=== PATIENT | female | born 1955 | race Caucasian/White ===

== ENCOUNTER → 2022-03-16 14:07 | Outpatient (CLI) | payer BC, SELFPAY ==
--- NOTE | ~2022-03-16 | MM_ITS ---
EXAMINATION: MM screening [facility] BI w santino HISTORY: Screening mammogram TECHNIQUE: Craniocaudal and mediolateral oblique 3-D tomosynthesis images were obtained and synthetic 2-D images were generated. CAD analysis was submitted and interpreted. COMPARISON: 01/14/2015, 08/26/2011 BREAST PARENCHYMAL COMPOSITION: There are scattered areas of fibroglandular density. FINDINGS: There is no suspicious mass, calcification, or architectural distortion to suggest malignan cy in either breast. There has been no suspicious interval change. IMPRESSION: 1. No mammographic evidence of malignancy. 2. Recommend routine screening mammography in one year. BI-RADS Category 1: Negative Reviewed, dictated and finalized at location A.
== END ==
PROVIDERS: PCP Family Medicine; Visit Provider Nurse Practitioner
DX: Z12.31 Encounter for screening mammogram for malignant neoplasm of breast (principal)
CPT/HCPCS: 77063; 77067

== ENCOUNTER 2022-05-18 17:42 | Inpatient (IN) | payer BC, MEDICARE, SELFPAY ==
[2022-05-18] VITALS (10 sets, daily range): BP systolic 110–150; BP diastolic 72–87; PULSE 86–103; RESP 13–22; TEMP 36.4–36.8; O2SAT 96–99; BMI 28.4
--- NOTE | ~2022-05-18 | XR_ITS ---
XR chest 1V portable DATE: 05/18/2022 18:03 INDICATION: Chest pain, STEMI TECHNIQUE: Portable upright AP chest on 06/04/2022 at 1801 hours COMPARISON: None FINDINGS: Heart size is within normal limits. No hilar or mediastinal enlargement. No pulmonary infil trate or consolidation, pleural effusion or pulmonary vascular congestion or pneumothorax. IMPRESSION: No active cardiopulmonary disease Reviewed, dictated and finalized at location A.
--- NOTE | 2022-05-18 17:44 | ECG_ITS ---
Measurements Intervals [place] Rate: 90 P: 56 LA: 155 QRS: 5 QRSD: 93 T: 73 QT: 357 QTc: 439 Interpretive Statements SINUS RHYTHM LOW QRS VOLTAGE IN PRECORDIAL LEADS BORDERLINE R WAVE PROGRESSION, ANTERIOR LEADS INFERIOR ST ELEVATION MYOCARDIAL INFARCT- ACUTE BASELINE ARTIFACT- I, II, III, AVR, AVL, AVF ABNORMAL ECG NO PREVIOUS ECG AVAILABLE FOR COMPARISON Electronically Signed On 05-18-2022 19:39:49 CDT by Demetrius Tello D.O.
--- NOTE | 2022-05-18 17:55 | ED.CHESTPAIN ---
HPI - Chest Pain General Chief Complaint: Chest Pain Stated Complaint: Chest Pain Time Seen by Provider: 05/18/22 17:57 History of Present Illness HPI narrative: Patient is a 67-year-old female presenting with chest pain. Patient states that she developed substernal chest pain that goes to her left arm approximately 2 and half hours ago. States she has never had a similar episode in the past. EKG in triage reveals STEMI so [facility] [employer] Supervisor was activated. Further history limited at this time due to medical condition. Related Data Home Medications Medication Instructions Recorded Confirmed omeprazole 40 mg capsule,delayed 40 mg PO DAILY 05/18/22 05/18/22 release venlafaxine 150 mg 150 mg PO DAILY 05/18/22 05/18/22 capsule,extended release 24 hr Allergies Allergy/AdvReac Type Severity Reaction Status Date / Time No Known Allergies Allergy Unverified 05/19/22 00:39 Review of Systems Review of Systems: ROS unobtainable: Yes unobtainable due to medical condition PMF Family History Family History Mother Heart disease ICD (implantable cardioverter-defibrillator) in place Father Heart disease Social History Social History Smoking packs per day: 1 Smoking cigarettes per day: 20.0 Years smoked: 20 Smoking pack-years: 20.00 Smoking status: Former smoker Tobacco type: cigarettes Second hand tobacco smoke exposure: No Alcohol intake: current Drinks per week: 2 Substance use: never Substance use type: does not use Has the Lack of Transportation Kept You From Medical Appointments or From Getting Medications?: No Within the Past 12 Months, Were You Worried Whether Your Food Would Run Out Before You Got Money to Buy More?: Never True What is Your Housing Situation Today?: I Have Housing Are You Worried That in the Next 2 Months, You May Not Have Your Own Housing to Live In?: No Do You Have Trouble Paying Your Heating Or Electricity Bill?: No Do You Have Trouble Paying For Medicines?: No Are You Currently Unemployed and Looking for Work?: No Highest Level of Education Completed: High School Diploma/GED Do You Have Trouble With Childcare or the Care of a Family Member?: No Spiritual care concerns: No Exam Narrative: GENERAL: Uncomfortable appearing female HEAD: Normocephalic, atraumatic. EYES: PERRLA and EOMI. ENT: Nares clear, no rhinorrhea or epistaxis. Mucous membranes moist. NECK: Supple. CHEST: Clear to auscultation. No respiratory distress. HEART: Regular rate and rhythm. No murmur heard. Normal peripheral pulses. ABDOMEN: Soft, nontender, nondistended, normal active bowel sounds. EXTREMITIES: Normal range of motion. No edema. SKIN: Warm, dry, no rash. NEURO: No focal deficits. Alert and oriented x3. PSYCH: Normal mood and affect. Course Vital Signs Vital signs: Vital Signs Temperature 98.3 F 05/18/22 17:54 Pulse Rate 103 H 05/18/22 17:54 Respiratory Rate 20 05/18/22 17:54 Blood Pressure 139/77 05/18/22 17:54 Pulse Oximetry 99 05/18/22 17:54 Oxygen Delivery Room Air 05/18/22 17:54 Temperature 97.6 F 05/21/22 12:00 Pulse Rate 77 05/21/22 12:00 Respiratory Rate 16 05/21/22 12:00 Blood Pressure 101/59 L 05/21/22 12:20 Pulse Oximetry 99 05/21/22 12:00 Oxygen Delivery Room Air 05/21/22 04:00 Oxygen Flow Rate 2 05/20/22 04:06 Fraction of Inspired Oxygen 28 05/20/22 04:06 MDM - Chest Pain MDM Narrative Medical decision making narrative: Patient is a 67-year-old female presenting with chest pain. STEMI alert was called upon obtaining EKG in triage. Appears to be an inferior VT. Patient was given aspirin. Spoke with Dr. Douglass who will take her to the [facility] Supervisor. Patient emergently transferred to the lab for further management. Lab Data Result diagrams: 05/21/22 05:15 05/21/22 05
--- NOTE | 2022-05-18 18:03 | PC.NURSE ---
1750 Dr Hung [facility] [address] [place] [address] Douglass notified [facility] called ETA 16min
[2022-05-18] MEDS: ASPIRIN 81 MG CHEWABLE TABLET 324 MG PO (18:09)
--- NOTE | 2022-05-18 18:12 | PC.NURSE ---
1809 Dr. Mohamud at bedside to talk with patient
[2022-05-18 18:15] LABS: Basophils Absolute Auto 0.1 K/mm3 (0.0-0.1); Basophils Percent Auto 0.6 % (0.2-1.2); Eosinophils Absolute Auto 0.2 K/mm3 (0-0.3); Eosinophils Percent Auto 1.5 % (0-4.4); Hemoglobin 14.3 g/dL (12.0-15.0); Immature Granulocyte Absolute 0.03 K/mm3 (0.00-0.031); Immature Granulocyte Percent A 0.3 % (0-0.5); Lymphocytes Absolute Auto 2.15 K/mm3 (0.9-3.2); Lymphocytes Percent Auto 19.6 % (18.3-44.2); Mean Corpuscular HGB Conc 33.3 g/dl (32-36); Mean Corpuscular Hemoglobin 30.4 pg (26-34); Mean Corpuscular Volume 91.5 fl (80-100); Mean Platelet Volume 11.1 fl (7.4-10.4); Monocytes Absolute Auto 0.8 K/mm3 (0.1-0.6); Monocytes Percent Auto 7.3 % (2.6-8.5); Neutrophils Absolute Auto 7.8 K/mm3 (1.3-6.7); Neutrophils Percent Auto 70.7 % (45.5-73.1); Platelet Count Result 309 k/mm3 (150-375)
[2022-05-18] MEDS: TICAGRELOR 90 MG TABLET 180 MG PO (18:17)
[2022-05-18 18:26] LABS: Prothrombin Time 12.5 Seconds (11.1-14.7)
[2022-05-18 18:27] LABS: Alanine Aminotransferase 63 U/L (6-35); Alkaline Phosphatase 99 U/L (38-126); Anion Gap 14 mmol/L (8-16); Aspartate Amino Transferase 67 U/L (14-36); Bilirubin,Total 0.5 mg/dL (0.2-1.3); Blood Urea Nitrogen 15 mg/dL (7-17); Calcium 9.3 mg/dL (8.4-10.2); Carbon Dioxide 24 mmol/L (22-30); Chloride 99 mmol/L (98-107); Estimated Glomerular Filt Rate > 60; Glucose 207 mg/dL (65-110); Lipase 139 U/L (23-300); Potassium 3.9 mmol/L (3.4-5.0); Sodium 137 mmol/L (137-145)
[2022-05-18 18:43] LABS: Troponin I 0.042 ng/mL (0.000-0.034)
--- NOTE | 2022-05-18 19:28 | ECG_ITS ---
Measurements Intervals [place] Rate: 102 P: 57 [place]: 155 QRS: 15 QRSD: 89 T: 82 QT: 344 QTc: 448 Interpretive Statements SINUS TACHYCARDIA LOW QRS VOLTAGE IN PRECORDIAL LEADS BORDERLINE R WAVE PROGRESSION, ANTERIOR LEADS INFERIOR ST ELEVATION MYOCARDIAL INFARCT- ACUTE BASELINE ARTIFACT- I, II, AVR, AVL ABNORMAL ECG COMPARED TO ECG 05/18/2022 17:47:59 SINUS TACHYCARDIA NOW PRESENT Electronically Signed On 05-18-2022 19:39:08 CDT by Demetrius Tello D.O.
--- NOTE | 2022-05-18 19:37 | PM.IMHP ---
H&P: HPI History of Present Illness Date/Time: 05/18/22 19:37 Chief Complaint: chest pain Narrative: this is a 67-year-old lady without any prior cardiac history and really a paucity of general medical problems other than some history of depression. She began to experience a retrosternal burning like chest pain at about 3:00 a.m. this afternoon. After about an hour the pain started to radiate into the left arm at which time she became concerned about her cardiac status. When her got home from work she had him take her to the emergency room for evaluation upon arrival her electrocardiogram was found to be consistent with acute inferolateral myocardial infarction and emergency STEMI was declared. Once again she has no previous history of cardiac problems and specifically denies hypertension dyslipidemia or diabetes. She does not smoke. She reports coronary disease to be prevalent in the family Review of Systems Review of Systems: ROS unobtainable: Yes unobtainable due to medical condition Meds Home Medications and Allergies Allergies Allergy/AdvReac Type Severity Reaction Status Date / Time No Known Allergies Allergy Unverified 10/11/18 07:36 Vital Signs Vital Signs - 24 hr 05/18/22 17:54 05/18/22 18:00 05/18/22 18:15 Temperature 36.8 C Pulse Rate 103 H 98 98 Respiratory Rate 20 16 14 Blood Pressure 139/77 132/73 150/87 H Pulse Oximetry 99 98 98 Oxygen Delivery Room Air Exam Const: General: in distress and uncomfortable Other: well-developed well-nourished white female appearing her stated age in moderate distress with chest pain currently rated 8/10 HENMT: Mouth: Yes moist mucous membranes Eyes: Sclera: sclerae normal Neck: Neck: supple and no JVD Other: carotid pulses are intact and without bruits Resp: Effort & Inspection: normal respiratory effort Auscultation: clear to auscultation bilaterally Cardio: Rate: regular rate Rhythm: regular rhythm Other: no murmur no gallop no rub GI: GI Palp: Yes Soft to palpation Auscultation: normal bowel sounds Skin: General skin exam: normal color Neuro: Other: alert and oriented x3 Extrem: General: normal to inspection Other: no edema, good pulses H&P: Results Labs Labs: Short CBC 05/18/22 Range/Units 18:06 WBC 11.0 H (4.5-10.0) K/mm3 Hgb 14.3 (12.0-15.0) g/dL Hct 43.0 (37.0-47.0) % Plt Count 309 (150-375) k/mm3 BMP 05/18/22 18:06 Sodium 137 Potassium 3.9 Chloride 99 Carbon Dioxide 24 BUN 15 Creatinine 0.80 Glucose 207 H Calcium 9.3 Cardiac Enzymes 05/18/22 Range/Units 18:06 Troponin I 0.042 H* (0.000-0.034) ng/mL Liver Function 05/18/22 Range/Units 18:06 Total Bilirubin 0.5 (0.2-1.3) mg/dL AST 67 H (14-36) U/L ALT 63 H (6-35) U/L Alkaline Phosphatase 99 (38-126) U/L Albumin 5.0 (3.5-5.1) g/dL Assessment and Plan Assessment and plan (1) ST elevation [place] (STEMI): Code(s): I21.3 - ST elevation (STEMI) myocardial infarction of unspecified site Status: Acute Plan this is a 67-year-old lady without previous cardiac problems and really a paucity of general medical problems who presents to the hospital today with about 3 hours of chest pain and evidence of acute inferolateral infarction on ECG. She will be brought to the quality assurance qa lab technician for emergency angiography and revascularization. Terry Douglass MD [facility]
--- NOTE | 2022-05-18 19:42 | WPDCARDPROC ---
Cardiac Cath Procedure Note Date of procedure:: 05/18/22 Performing physician:: Terry Douglass MD Indication:: ST-elevation VT Brief clinical history:: this is a 67-year-old patient without prior cardiac history of cardiac problems who enters the hospital with several hours of chest pain and ECG evidence of inferolateral infarction Procedure Procedure performed:: emergency coronary angiography attempted PCI of distal circumflex Sedation/Medication given:: fentanyl 50 mg Access site:: right femoral artery Estimated blood loss:: 50 cc Procedure note:: patient was brought to cardiac catheterization lab in the emergency setting where the right femoral triangle was prepared and draped in the normal fashion. Anesthesia was provided with 1% lidocaine infiltrated locally. Using the modified Seldinger technique the femoral artery was punctured and 6 Algerian vascular sheath was placed. After this I used a 5 Algerian FL4 diagnostic catheter to engage inject the left coronary artery in multiple projections lab after this a 5 Algerian JR4 catheter was used to engage and inject the right coronary artery in orthogonal projections. The cineangiograms were then studied and PCI of the distal circumflex was recommended and attempted as detailed below. Prior to attempted PCI the patient was anticoagulated with a bolus and infusion of Angiomax. She received aspirin and 180 mg of Brilinta in the emergency department. Following attempted PCI this sheath was sutured into position the patient was taken down to the ICU for post VT care and recovery. Findings:: Hemodynamics: Aortic pressure was 142/84 left ventricle was not entered during this procedure the left main coronary artery is widely patent the left anterior descending is a large caliber artery angiographically completely normal in appearance. The LAD continues down to around the apex and provides a significant amount of inferior wall as well. The LAD and its branches are angiographically unremarkable. Circumflex is a large caliber vessel that is dominant to the posterior wall. The proximal circumflex and the proximal major marginal branch are angiographically normal. There is a 2nd obtuse marginal branch that is medium in size and is free of disease. After this branch the circumflex trunk in the AV groove in the posterior segment is 100% occluded in a manner typical of abrupt thrombotic occlusion. right coronary artery is small in caliber is non dominant providing only 2 right ventricular branches it is angiographically unremarkable intervention: The guiding catheter used was a 6 Algerian CLS 3.5. I used a 0.014 BMW guidewire as well as a 0.014 arresting gear operator 150 guidewire. The occlusion of the distal circumflex was crossed with both wires. I used several different angioplasty balloons including a 2.5 and a 3.0 x 20 mm noncompliant balloon. Following inflations with these balloons there was no risk baptism of any angiographically significant flow distal to the point of occlusion. I repositioned the guidewire several times in hopes of identifying the major channel but all of was seen angiographically was small very small distal branches following the total occlusion. I then tried on 2 occasions to use the emaze thrombectomy extraction catheter to hopefully extracted of clot from the distal site of the occlusion at the circumflex to visualize the vessels more successfully. This did also did not improve the appearance of the vessel at all. Following this the procedure was terminated and declared unsuccessful but uncomplicated. Conclusion:: 1. Left coronary dominant circulation with acute infero posterior VT resulting from occlusion of the distal circumflex as described above. 2. No significant left main LAD or right coronary disease 3. unsuccessful but uncomplicated attempted revascularization of the distal circumflex following balloon dilatation and extraction th
--- NOTE | 2022-05-18 19:46 | ECG_ITS ---
Measurements Intervals [place] Rate: 88 P: 56 MA: 175 QRS: 58 QRSD: 100 T: 85 QT: 382 QTc: 464 Interpretive Statements SINUS RHYTHM LOW QRS VOLTAGE IN LIMB LEADS BORDERLINE R WAVE PROGRESSION, ANTERIOR LEADS INFERIOR ST ELEVATION MYOCARDIAL INFARCT- ACUTE ANTEROLATERAL ST ELEVATION MYOCARDIAL INJURY- ACUTE ABNORMAL ECG COMPARED TO ECG 05/18/2022 17:57:56 SINUS RHYTHM NOW PRESENT ANTEROLATERAL ST ELEVATION MYOCARDIAL INJURY- ACUTE NOW PRESENT Electronically Signed On 05-19-2022 6:58:52 CDT by Demetrius Tello D.O.
[2022-05-18] MEDS: MORPHINE SULFATE (*CRX) 4 MG/ML INJ IV PUSH (20:08)
[2022-05-18] MEDS: SODIUM CHLORIDE 0.9% IV 1,000 ML 125 ML IV CONT (20:12)
--- NOTE | 2022-05-18 20:22 | ADMGEN ---
This patient, Lauren Rosales, was admitted to Intensive Care Unit-10 at 1955 on 05/18/2022. Patient/family oriented to hospital policies and general routines including ID bracelet, bed and alarms, visiting hours, pain management, procedures, bathroom and other care routines, personal items, smoking policy, room service/diet, and visiting hours. Information on how to activate the Rapid Response Team has been discussed. Patient/Family are encouraged to report perceived risks to care and to ask questions if they do not understand what they are told or what they should do.
[2022-05-18 21:24] LABS: Cholesterol 236 mg/dL (0-200); HDL Direct 53 mg/dL; Triglycerides 130 mg/dL (<150)
[2022-05-18 21:35] LABS: LDL Cholesterol Direct 149 mg/dL
[2022-05-18 21:41] LABS: Troponin I 0.392 ng/mL (0.000-0.034)
--- NOTE | 2022-05-18 22:00 | PC.NURSE ---
[facility] flyer was given to patient.
[2022-05-18] MEDS: MORPHINE SULFATE (*CRX) 2 MG/ML INJ 1 MG IV PUSH (22:18)
[2022-05-19] VITALS (28 sets, daily range): BP systolic 98–123; BP diastolic 63–89; PULSE 65–119; RESP 11–20; TEMP 36.1–37.2; O2SAT 92–100
[2022-05-19] MEDS: MORPHINE SULFATE (*CRX) 4 MG/ML INJ IV PUSH ×3 (00:14→18:35)
[2022-05-19] MEDS: METOPROLOL TARTRATE 25 MG TABLET PO ×2 (00:15→06:30)
[2022-05-19 02:20] LABS: Hematocrit 39.1 % (37.0-47.0); Hemoglobin 13.2 g/dL (12.0-15.0); Mean Corpuscular HGB Conc 33.8 g/dl (32-36); Mean Corpuscular Hemoglobin 30.8 pg (26-34); Mean Corpuscular Volume 91.4 fl (80-100); Mean Platelet Volume 10.6 fl (7.4-10.4); Platelet Count Result 298 k/mm3 (150-375); Red Blood Count 4.28 M/mm3 (4.2-5.4); Red Cell Distribution Width 13.1 % (11.5-14.5); White Blood Count 13.1 K/mm3 (4.5-10.0)
[2022-05-19 02:28] LABS: Alanine Aminotransferase 63 U/L (6-35); Albumin Level 4.3 g/dL (3.5-5.1); Alkaline Phosphatase 76 U/L (38-126); Anion Gap 14 mmol/L (8-16); Aspartate Amino Transferase 146 U/L (14-36); Bilirubin,Total 0.3 mg/dL (0.2-1.3); Blood Urea Nitrogen 13 mg/dL (7-17); Calcium 8.4 mg/dL (8.4-10.2); Carbon Dioxide 23 mmol/L (22-30); Chloride 102 mmol/L (98-107); Estimated CRCL calculation 74 ml/min; Estimated Glomerular Filt Rate > 60; Glucose 150 mg/dL (65-110); Magnesium 2.2 mg/dL (1.6-2.3); Phosphorus 5.8 mg/dL (2.5-4.5); Potassium 4.2 mmol/L (3.4-5.0); Sodium 139 mmol/L (137-145)
--- NOTE | 2022-05-19 05:11 | ECG_ITS ---
Measurements Intervals [place] Rate: 82 P: 53 MO: 164 QRS: -8 QRSD: 89 T: -77 QT: 418 QTc: 490 Interpretive Statements SINUS RHYTHM LOW QRS VOLTAGE IN PRECORDIAL LEADS INFERIOR INFARCT, PROBABLY RECENT T WAVE ABNORMALITY IN ANTEROLATERAL LEADS- CONSIDER ISCHEMIA ABNORMAL ECG COMPARED TO ECG 05/18/2022 19:53:28 T WAVE ABNORMALITY IN ANTEROLATERAL LEADS- CONSIDER ISCHEMIA NOW PRESENT Electronically Signed On 05-19-2022 11:03:58 CDT by Demetrius Tello D.O.
--- NOTE | 2022-05-19 08:24 | WPDCNINT ---
Assessment and Plan Assessment and plan (1) ST elevation [place] (STEMI): Code(s): I21.3 - ST elevation (STEMI) myocardial infarction of unspecified site Status: Acute Assessment and Plan: Patient presented with retro sternal chest pain, presented the ED on 05/18/2022, -Initial EKG showed acute inferior lateral myocardial infarction. - Patient was taken to the cardiac laboratory analyst, patient had a complete occlusion of the distal circumflex was unsuccessful revascularization per Cardiology -continue aspirin, metoprolol and rosuvastatin. (2) Hyperlipidemia: Code(s): E78.5 - Hyperlipidemia, unspecified Status: Acute Assessment and Plan: Continue statin (3) Hyperglycemia: Code(s): R73.9 - Hyperglycemia, unspecified Status: Acute Assessment and Plan: Hyperglycemia, could be stress-induced -will obtain hemoglobin A1c (4) Depression: Code(s): F32.A - Depression, unspecified Status: Acute Assessment and Plan: Patient on venlafaxine at home, will restart if okay with Cardiology Plan DVT prophylaxis: SCDs Stress ulcer prophylaxis: Not applicable Nutrition: Heart healthy diet Discussed with patient and at bedside and answered all the questions. Code Status: Full code Critical Care Time Spent: 43 minutes Due to a high probability of clinically significant, life threatening deterioration, the patient required my highest level of preparedness to intervene emergently and I personally spent this critical care time directly and personally managing the patient. This critical care time included obtaining a history; examining the patient; pulse oximetry; ordering and review of studies; arranging urgent treatment with development of a management plan; evaluation of patient's response to treatment; frequent reassessment; and discussions with other providers. It was exclusive of separately billable procedures and treating other patients and teaching time. Please see Assessment and Plan section and the rest of the note for further information on patient assessment and treatment Cartography Professor Consult Note Consult date: 05/19/22 Reason for consult: ST-elevation MD, chest pain HPI: Lauren Rosales is a 67 year old female with no significant past medical history other than depression presented the ED on 05/18/2022 with complains of retrosternal chest pain, which was a burning like pain that radiated to the left on. Patient presented the ED with her , EKG on arrival showed acute inferior lateral myocardial infarction. Patient was taken to the cardiac laboratory analyst, patient had a complete occlusion of the distal circumflex was unsuccessful revascularization per Cardiology the patient was started on aspirin, metoprolol and rosuvastatin. Patient was transferred to the ICU for further management Patient seen and examined the ICU, remains awake, alert, oriented. Patient has been having some chest pain overnight, this morning she says chest pain is 2/10, denies any shortness of breath. Denies any tobacco use or illicit drug use. She stated is she drinks a couple beers on the weekends. Patient had a short run of V-tach overnight and multiple episodes of tachycardia. Patient denies any nausea, vomiting, diarrhea, abdominal pain at this. Hemodynamically stable, urine output has been adequate, afebrile Review of Systems Review of Systems: All systems reviewed & are unremarkable except as noted in HPI and below [facility] Family History Family History (Updated 05/18/22 @ 20:34 by Josette Mcclellan RN) Mother Heart disease ICD (implantable cardioverter-defibrillator) in place Father Heart disease Social History Social History Smoking packs per day: 1 Smoking cigarettes per day: 20.0 Years smoked: 20 Smoking pack-years: 20.00 Smoking status: Former smoker Tobacco type: cigarettes Second hand tobacco smoke exposure: No Alcohol intake: current Drinks per
[2022-05-19] MEDS: PERFLUTREN LIPID MICROSPHERES 1.5 ML VIAL DILUTED TO 10 ML TOTAL VOLUME IV PUSH (08:29)
--- NOTE | 2022-05-19 08:30 | IVDEFINITY ---
Prior to administration of IV Definity the patient was educated on the risks and benefits of the imaging enhancing agent including potential adverse side effects. The patient verbalized understanding. Allergies were verified. No exclusion criteria were identified and at least one of the following inclusion criteria were met: 1) physician request, 2) patient technically difficult to image (per the [place] [employer]ocardi[employer] guidelines of two or more segments not discernable within the apical view), or 3) questionable left ventricular function. ?
[2022-05-19 08:56] LABS: Hemoglobin A1C 5.7 % (<5.7)
[2022-05-19] MEDS: ASPIRIN 81 MG CHEWABLE TABLET PO (09:54)
[2022-05-19] MEDS: LOSARTAN POTASSIUM 25 MG TABLET PO (09:58)
[2022-05-19] MEDS: ROSUVASTATIN 10 MG TABLET 20 MG PO (09:58)
--- NOTE | 2022-05-19 10:14 | PM.PNCARD ---
Progress Note: A&P Assessment and Plan (1) ST elevation [place] (STEMI): Code(s): I21.3 - ST elevation (STEMI) myocardial infarction of unspecified site Status: Acute Plan 67-year-old woman with: Acute inferior posterior infarction resulting from distal occlusion of her dominant circumflex. PCI of this was attempted unsuccessfully. She is stable this morning she does have some asymptomatic nonsustained ventricular arrhythmias which is not unexpected or of great concern in the 1st 24 hours. Echocardiogram is pending to assess LV ejection fraction. I will transition her beta-anna to metoprolol succinate this morning and continue the remainder of her medication. The patient's LAD was a very large vessel providing significant flow to the inferior wall as well so it appears that the infarction was not extensive given her troponin rise to only 2.4. Anticipate at least a couple more days in the hospital recovering from this. she can move out to IMU this morning Terry Douglass MD [facility] Subjective Date/time seen: date of service:05/19/22 10:14 Interval history: Follow-up visit in this 67-year-old woman with: Coronary artery disease presenting with acute inferolateral myocardial infarction yesterday. Patient had culprit lesion in the occlusion of her distal dominant circumflex. She had attempt at PCI of this with no success. She is asymptomatic this morning and feels well. Overnight there have been some asymptomatic nonsustained runs of ventricular tachycardia. No longer having any chest pain Exam Const: General: comfortable and no acute distress Other: well-developed well-nourished white female pleasant cooperative no distress this morning HENMT: Mouth: Yes moist mucous membranes Eyes: Sclera: sclerae normal Pupils: Equal, round and reactive pupils present Neck: Neck: supple and no JVD Resp: Effort & Inspection: normal respiratory effort Auscultation: clear to auscultation bilaterally Cardio: Rate: regular rate Rhythm: regular rhythm Other: no murmur no gallop no rub GI: GI Palp: Yes Soft to palpation Auscultation: normal bowel sounds Skin: General skin exam: normal color Neuro: Other: alert and oriented x3, normal cognition Extrem: General: normal to inspection Other: no edema, good distal pulses Objective Data Vital Signs Vital Signs: Vital Signs - 24 hr 05/18/22 17:54 05/18/22 18:00 05/18/22 18:15 Temperature 36.8 C Pulse Rate 103 H 98 98 Respiratory Rate 20 16 14 Blood Pressure 139/77 132/73 150/87 H Pulse Oximetry 99 98 98 Oxygen Delivery Room Air Oxygen Flow Rate 05/18/22 20:13 05/18/22 22:25 05/18/22 22:00 Temperature 36.4 C Pulse Rate 90 92 88 Respiratory Rate 22 H 18 Blood Pressure 110/72 122/74 Pulse Oximetry 98 99 Oxygen Delivery Oxygen Flow Rate 05/18/22 22:00 05/18/22 22:40 05/18/22 20:00 Temperature Pulse Rate 93 93 Respiratory Rate 18 13 Blood Pressure 117/79 118/83 Pulse Oximetry 96 97 98 Oxygen Delivery Room Air Oxygen Flow Rate 05/18/22 22:55 05/18/22 20:00 05/18/22 23:30 Temperature Pulse Rate 97 86 99 Respiratory Rate 18 18 Blood Pressure 114/77 121/83 Pulse Oximetry 97 96 Oxygen Delivery Oxygen Flow Rate 05/19/22 00:00 05/19/22 00:15 05/19/22 00:00 Temperature 37.2 C Pulse Rate 97 94 Respiratory Rate 18 Blood Pressure 123/87 Pulse Oximetry 95 95 Oxygen Delivery Nasal Cannula Oxygen Flow Rate 2 05/19/22 00:05 05/19/22 00:05 05/19/22 00:30 Temperature Pulse Rate 100 100 96 Respiratory Rate 18 Blood Pressure 120/80 Pulse Oximetry 92 Oxygen Delivery Oxygen Flow Rate 05/19/22 01:00 05/19/22 02:00 05/19/22 02:00 Temperature Pulse Rate 92 89 89 Respiratory Rate 14 16 Blood Pressure 115/84 117/89 Pulse Oximetry 94 95 Oxygen Delivery Oxygen Flow Rate 05/19/22 03:00 05/19/22 04:00 05/19/22 04:00 Temperature
[2022-05-19] MEDS: METOPROLOL SUCCINATE EXT REL 50 MG TABCR PO (12:32)
[2022-05-19] MEDS: VENLAFAXINE HCL XR 75 MG CAP.ER.24H 150 MG PO (12:32)
[2022-05-19] MEDS: PANTOPRAZOLE 40 MG TABLET PO (12:32)
[2022-05-19] MEDS: NITROGLYCERIN SL 0.4 MG TABLET SUBLINGUAL ×2 (16:05→16:17)
--- NOTE | 2022-05-19 16:30 | PC.NURSE ---
Report given to KORY Rodriguez at 1630. All questions answered and plan of care reviewed. Patient to go to IMU room 214.
[2022-05-19 16:46] LABS: Glucose Point of Care 148 mg/dl (65-105)
[2022-05-19] MEDS: MAG HYDROX/AL HYDROX/SIMETH 30 ML UDC PO (18:47)
--- NOTE | 2022-05-19 19:31 | ECHO_ITS ---
Patient Info Name: Lauren Rosales Age: 67 years : 1955 Gender: Female Ht: 66 in Wt: 169 lbs BSA: 1.91 m2 HR: 119 bpm BP: 111 / 82 mmHg Heart Rhythm: Sinus Rhythm Technical Quality: Fair Exam Date: 05/19/2022 8:01 AM Exam Location: [facility] Patient Status: Inpatient Admit Date: 05/18/2022 Staff Ordering Physician: Terry Douglass MD Prepress Supervisor: Evelyn Rios RDCS Attending Provider: Terry Douglass MD Referring Physician: Evonne BLACKMAN; Exam Type: CA echo dop color flow w con Study Info Indications - Infero posterior DE Complete two-dimensional, color flow and Doppler transthoracic echocardiogram is performed with contrast to opacify the left ventricle and to improve the deliniation of the left ventricle endocardial borders. Contrast/Agitated Saline Contrast/Ag. Saline: Definity Amount: 3.00 ml Administered By: Evelyn Rios RDCS Existing IV Access: Yes IV Access Condition: patent with no signs of infiltration Summary 1. Left ventricular chamber dimension is mildly enlarged. 2. Left ventricular systolic function is mildly reduced, estimated at 40-45%. 3. The posterior segment is akinetic the lateral wall is moderately hypodynamic. 4. Left atrial chamber dimension is mildly enlarged. 5. There is trace mitral valve regurgitation. Left Ventricle Left ventricular chamber dimension is mildly enlarged. Left ventricular systolic function is mildly reduced, estimated at 40-45%. The left ventricular diastolic function is grade I diastolic dysfunction. The posterior segment is akinetic the lateral wall is moderately hypodynamic. Right Ventricle Right ventricular chamber dimension is normal. Left Atria Left atrial chamber dimension is mildly enlarged. Right Atria Right atrial chamber dimension is mildly enlarged. Aortic Valve The aortic valve is normal. Pulmonic Valve The pulmonic valve is not well visualized. Mitral Valve The mitral valve has normal leaflets. There is trace mitral valve regurgitation. Tricuspid Valve The tricuspid valve leaflets are normal. Pericardium/Pleural The pericardium appears normal. Aorta The aortic root size at the sinus of Valsalva is normal. Left Ventricular Outflow Tract Name Value Normal LVOT 2D LVOT Diameter 1.97 cm LVOT Doppler LVOT Peak Gradient 2 mmHg LVOT Mean Gradient 1 mmHg LVOT VTI 10.58 cm LVOT VTI/AV VTI Ratio 0.48 LVOT Stroke Volume 32.32 ml LVOT CO 2.40 l/min LVOT CI 1.26 L/min/m2 Pulmonic Valve Name Value Normal RVOT Doppler RVOT Peak Gradient 1 mmHg
[2022-05-20] VITALS (16 sets, daily range): BP systolic 101–123; BP diastolic 57–79; PULSE 85–111; RESP 14–26; TEMP 36.2–36.9; O2SAT 92–97
[2022-05-20] MEDS: ASPIRIN 81 MG CHEWABLE TABLET PO (08:14)
[2022-05-20] MEDS: PANTOPRAZOLE 40 MG TABLET PO (08:15)
[2022-05-20] MEDS: VENLAFAXINE HCL XR 75 MG CAP.ER.24H 150 MG PO (08:15)
[2022-05-20 08:20] LABS: Glucose Point of Care 135 mg/dl (65-105)
[2022-05-20] MEDS: METOPROLOL SUCCINATE EXT REL 50 MG TABCR PO (09:48)
[2022-05-20] MEDS: LOSARTAN POTASSIUM 25 MG TABLET PO (09:48)
[2022-05-20] MEDS: ROSUVASTATIN 10 MG TABLET 20 MG PO (09:48)
--- NOTE | 2022-05-20 10:47 | ECG_ITS ---
Measurements Intervals [place] Rate: 94 P: 61 MI: 162 QRS: 4 QRSD: 96 T: -59 QT: 384 QTc: 482 Interpretive Statements SINUS RHYTHM LOW QRS VOLTAGE IN PRECORDIAL LEADS INFERIOR MYOCARDIAL INFARCTION , PROBABLY RECENT T WAVE ABNORMALITY IN ANTEROLATERAL LEADS- CONSIDER ISCHEMIA BASELINE WANDER- V4 ABNORMAL ECG COMPARED TO ECG 05/19/2022 10:49:29 NO SIGNIFICANT CHANGES Electronically Signed On 05-20-2022 20:06:53 CDT by Demetrius Tello D.O.
[2022-05-20 11:05] LABS: Hematocrit 36.9 % (37.0-47.0); Hemoglobin 12.6 g/dL (12.0-15.0); Mean Corpuscular HGB Conc 34.1 g/dl (32-36); Mean Corpuscular Hemoglobin 31.3 pg (26-34); Mean Corpuscular Volume 91.6 fl (80-100); Mean Platelet Volume 10.8 fl (7.4-10.4); Platelet Count Result 272 k/mm3 (150-375); Red Blood Count 4.03 M/mm3 (4.2-5.4); Red Cell Distribution Width 13.2 % (11.5-14.5); White Blood Count 17.1 K/mm3 (4.5-10.0)
--- NOTE | 2022-05-20 11:14 | PM.PNCARD ---
Progress Note: A&P Assessment and Plan (1) ST elevation [place] (STEMI): Code(s): I21.3 - ST elevation (STEMI) myocardial infarction of unspecified site Status: Acute Assessment and Plan: unsuccessful attempt at occlusion of dominant circumflex. patient's symptoms she relates are similar to her prior acid reflux symptoms completely different than presenting chest discomfort, however, have some residual concerns symptoms may be residual angina but no exacerbation with activity. No recurrent ventricular arrhythmias. Sublingual nitroglycerin to observe response long-acting nitrate therapy as tolerated. DVT prophylaxis. (2) CAD (coronary artery disease): Code(s): I25.10 - Atherosclerotic heart disease of [place] coronary artery without angina pectoris Status: Acute Assessment and Plan: Continue aspirin, rosuvastatin 20 mg at bedtime. Add Clopidogrel 75 mg daily. Continue dual antiplatelet therapy. (3) Ischemic cardiomyopathy: Code(s): I25.5 - Ischemic cardiomyopathy Status: Acute Assessment and Plan: Mild to moderate LV dysfunction EF 40-45% akinesis of the inferolateral wall. Compensated. Losartan 25 mg daily, Toprol XL 50 mg daily. (4) Hyperlipidemia: Code(s): E78.5 - Hyperlipidemia, unspecified Status: Acute Assessment and Plan: Continue rosuvastatin 20 mg at bedtime (5) Hyperglycemia: Code(s): R73.9 - Hyperglycemia, unspecified Status: Acute Assessment and Plan: Monitor glucose. Consult medicine if persistently elevated. Check hemoglobin A1c. (6) GERD (gastroesophageal reflux disease): Code(s): K21.9 - Gastro-esophageal reflux disease without esophagitis Status: Acute Assessment and Plan: Continue Protonix 40 mg daily. Subjective Date/time seen: Date of service: 05/20/22 11:14 Interval history: Follow-up visit in this 67-year-old woman with: Coronary artery disease presenting with acute inferolateral myocardial infarction yesterday. Patient had culprit lesion in the occlusion of her distal dominant circumflex. She had attempt at PCI of this with no success. She is asymptomatic this morning and feels well. Overnight there have been some asymptomatic nonsustained runs of ventricular tachycardia. Date of service 05/20/2022 patient complained of burning discomfort similar to acid reflux completely different than chest pain she presented improving now with Protonix. Unable to take Maalox last night. Complains of intermittent dry cough. His tired no exacerbation chest pain with ambulation to the restroom. Denies dizziness. No ventricular tachycardia on telemetry overnight. Maintaining sinus rhythm. Hemodynamically stable. Denies leg pain. Denies palpitation, shortness of breath, edema, orthopnea. No dizziness. Review of Systems Review of Systems: Remainder of review of systems otherwise negative. Exam Const: General: comfortable, no acute distress, in distress and uncomfortable Other: well-developed well-nourished white female pleasant cooperative no distress this morning HENMT: Mouth: Yes moist mucous membranes Eyes: Sclera: sclerae normal Pupils: Equal, round and reactive pupils present Neck: Neck: supple and no JVD Other: carotid pulses are intact and without bruits Resp: Effort & Inspection: normal respiratory effort Auscultation: clear to auscultation bilaterally Cardio: Rate: regular rate Rhythm: regular rhythm Other: no murmur no gallop no rub GI: Auscultation: normal bowel sounds Skin: General skin exam: normal color Neuro: Cranial nerves: Yes Equal, round and reactive pupils present Other: alert and oriented x3, normal cognition Extrem: General: normal to inspection Other: no edema, good distal pulses Objective Data Vital Signs Vital Signs: Vital Signs - 24 hr 05/19/22 12:05 05/19/22 12:00 05/19/22 12:00 Temperature 36.6 C
[2022-05-20 11:18] LABS: Anion Gap 9 mmol/L (8-16); Blood Urea Nitrogen 17 mg/dL (7-17); Calcium 8.6 mg/dL (8.4-10.2); Carbon Dioxide 24 mmol/L (22-30); Chloride 98 mmol/L (98-107); Estimated CRCL calculation 74 ml/min; Estimated Glomerular Filt Rate > 60; Glucose 135 mg/dL (65-110); Potassium 3.8 mmol/L (3.4-5.0); Sodium 131 mmol/L (137-145)
[2022-05-20 11:34] LABS: Glucose Point of Care 134 mg/dl (65-105)
[2022-05-20] MEDS: ENOXAPARIN 40 MG/0.4 ML SYRINGE SUB-Q (12:33)
[2022-05-20] MEDS: CLOPIDOGREL BISULFATE 75 MG TABLET PO (12:33)
[2022-05-20 16:43] LABS: Glucose Point of Care 124 mg/dl (65-105)
[2022-05-20 20:07] LABS: Glucose Point of Care 127 mg/dl (65-105)
[2022-05-21] VITALS (9 sets, daily range): BP systolic 89–108; BP diastolic 52–66; PULSE 77–99; RESP 16–20; TEMP 36.3–36.6; O2SAT 96–99
--- NOTE | 2022-05-21 01:09 | PC.NURSE ---
Daylight Savings Time For Daylight Savings Time Ending in the Fall - Clocks are moved back. For Daylight Savings Time Beginning in the Spring - Clocks are moved ahead. For [facility], the time of change occurs at 0200 hrs. Time is taken from the client server developer. This entry on the patient's chart recognizes the change in time reflected during documentation. Example: 2 entries for vital signs may be charted for 0200 hrs.
[2022-05-21 05:37] LABS: Hematocrit 35.4 % (37.0-47.0); Hemoglobin 11.8 g/dL (12.0-15.0); Mean Corpuscular HGB Conc 33.3 g/dl (32-36); Mean Corpuscular Hemoglobin 30.8 pg (26-34); Mean Corpuscular Volume 92.4 fl (80-100); Mean Platelet Volume 11.1 fl (7.4-10.4); Platelet Count Result 225 k/mm3 (150-375); Red Blood Count 3.83 M/mm3 (4.2-5.4); Red Cell Distribution Width 13.3 % (11.5-14.5); White Blood Count 11.2 K/mm3 (4.5-10.0)
[2022-05-21 05:45] LABS: Hemoglobin A1C 5.6 % (<5.7)
[2022-05-21 05:47] LABS: Anion Gap 11 mmol/L (8-16); Blood Urea Nitrogen 14 mg/dL (7-17); Calcium 8.5 mg/dL (8.4-10.2); Carbon Dioxide 25 mmol/L (22-30); Chloride 102 mmol/L (98-107); Estimated CRCL calculation 57 ml/min; Estimated Glomerular Filt Rate > 60; Glucose 114 mg/dL (65-110); Potassium 3.1 mmol/L (3.4-5.0); Sodium 138 mmol/L (137-145)
[2022-05-21 08:27] LABS: Glucose Point of Care 116 mg/dl (65-105)
[2022-05-21] MEDS: ASPIRIN 81 MG CHEWABLE TABLET PO (08:38)
[2022-05-21] MEDS: VENLAFAXINE HCL XR 75 MG CAP.ER.24H 150 MG PO (08:38)
[2022-05-21] MEDS: ROSUVASTATIN 10 MG TABLET 20 MG PO (08:38)
[2022-05-21] MEDS: PANTOPRAZOLE 40 MG TABLET PO (08:39)
[2022-05-21] MEDS: LOSARTAN POTASSIUM 25 MG TABLET PO (08:39)
[2022-05-21] MEDS: CLOPIDOGREL BISULFATE 75 MG TABLET PO (08:39)
[2022-05-21] MEDS: METOPROLOL SUCCINATE EXT REL 50 MG TABCR PO (08:39)
[2022-05-21] MEDS: ENOXAPARIN 40 MG/0.4 ML SYRINGE SUB-Q (08:40)
[2022-05-21] MEDS: POTASSIUM CHLORIDE 20 MEQ TABLET 40 MEQ PO (09:24)
[2022-05-21 12:02] LABS: Glucose Point of Care 160 mg/dl (65-105)
--- NOTE | 2022-05-21 12:04 | PM.PNCARD ---
Progress Note: A&P Assessment and Plan (1) ST elevation [place] (STEMI): Code(s): I21.3 - ST elevation (STEMI) myocardial infarction of unspecified site Status: Acute Assessment and Plan: unsuccessful attempt at occlusion of dominant circumflex. patient had residual chest discomfort she felt related to acid reflux now resolved. Troponin peaked at over 19 downward trend this morning at 16. Patient is asymptomatic, well-compensated no other concerns. Continue current medical therapy with dual antiplatelet therapy with aspirin and clopidogrel, losartan, metoprolol and rosuvastatin 20 mg at bedtime. Post AZ/ catheterization precautions reviewed in detail the patient and her daughter bedside. All questions answered to their satisfaction. Patient states at a convenience she will likely follow up with [facility] which is where her other physicians are located. She will notify the office if she decides to follow up with us moving forward instead. Patient is afebrile, leukocytosis resolving most likely stress reaction no evidence for infection. Patient mildly hypokalemic this morning potassium 3.1 given 40 mEq p.o. x1. Patient will be discharged home in stable improved condition to follow up with her primary care physician as soon as possible and establish [facility] to be seen within the next 2-4 weeks. Notify our office immediately with any questions, concerns in the interval as counseled. Post catheterization access precautions also reviewed in detail. (2) CAD (coronary artery disease): Code(s): I25.10 - Atherosclerotic heart disease of [place] coronary artery without angina pectoris Status: Acute Assessment and Plan: Continue aspirin, rosuvastatin 20 mg at bedtime. Continue Clopidogrel 75 mg daily. tolerating well.. (3) Ischemic cardiomyopathy: Code(s): I25.5 - Ischemic cardiomyopathy Status: Acute Assessment and Plan: Mild to moderate LV dysfunction EF 40-45% akinesis of the inferolateral wall. Compensated. Losartan 25 mg daily, Toprol XL 50 mg daily. (4) Hyperlipidemia: Code(s): E78.5 - Hyperlipidemia, unspecified Status: Acute Assessment and Plan: Continue rosuvastatin 20 mg at bedtime (5) Hyperglycemia: Code(s): R73.9 - Hyperglycemia, unspecified Status: Acute Assessment and Plan: Monitor glucose. Consult medicine if persistently elevated. Check hemoglobin A1c. Follow-up with PCP since possible as an outpatient. (6) GERD (gastroesophageal reflux disease): Code(s): K21.9 - Gastro-esophageal reflux disease without esophagitis Status: Acute Assessment and Plan: Symptoms resolved. Continue Protonix 40 mg daily. Subjective Date/time seen: Date of service:05/21/22 12:04 Interval history: Follow-up visit in this 67-year-old woman with: Coronary artery disease presenting with acute inferolateral myocardial infarction yesterday. Patient had culprit lesion in the occlusion of her distal dominant circumflex. She had attempt at PCI of this with no success. She is asymptomatic this morning and feels well. Overnight there have been some asymptomatic nonsustained runs of ventricular tachycardia. 05/20/2022 patient complained of burning discomfort similar to acid reflux completely different than chest pain she presented improving now with Protonix. Unable to take Maalox last night. Complains of intermittent dry cough. His tired no exacerbation chest pain with ambulation to the restroom. Denies dizziness. No ventricular tachycardia on telemetry overnight. Maintaining sinus rhythm. Hemodynamically stable. Denies leg pain. Denies palpitation, shortness of breath, edema, orthopnea. No dizziness. 05/21/2022 patient feels very well this morning. No chest pain, shortness of breath, dizziness. Energy much better. Eating better no concerns overnight. No ventricular
--- NOTE | 2022-05-21 12:19 | PM.DS ---
DS: Admitting Diagnosis Discharge Date 05/21/[address]-elevation ID GERD DS: Discharge Diagnosis Discharge Diagnosis (1) Ischemic cardiomyopathy: Code(s): I25.5 - Ischemic cardiomyopathy Status: Acute Assessment and Plan: EF 40-45% in setting of occluded circumflex unsuccessful attempted intervention. Patient will compensated. Toprol XL, losartan initiated. (2) CAD (coronary artery disease): Code(s): I25.10 - Atherosclerotic heart disease of [place] coronary artery without angina pectoris Status: Acute Assessment and Plan: As above. Continue dual antiplatelet therapy, beta-anna, statin, losartan. (3) ST elevation ID (STEMI): Code(s): I21.3 - ST elevation (STEMI) myocardial infarction of unspecified site Status: Acute Assessment and Plan: Unsuccessful attempted intervention to occluded circumflex with corresponding wall motion abnormality, mild to moderate LV systolic dysfunction EF 40-45%. (4) Hyperglycemia: Code(s): R73.9 - Hyperglycemia, unspecified Status: Acute Assessment and Plan: Follow-up with PCP for further evaluation and management. Hemoglobin A1c 5.6%. (5) Hyperlipidemia: Code(s): E78.5 - Hyperlipidemia, unspecified Status: Acute Assessment and Plan: Continue rosuvastatin 20 mg at bedtime. Goal LDL less than 70. Repeat lipid panel in 2 months. LDL 149 at admission. (6) GERD (gastroesophageal reflux disease): Code(s): K21.9 - Gastro-esophageal reflux disease without esophagitis Status: Acute Assessment and Plan: Continue PPI. Protonix 40 mg daily will be prescribed at discharge. DS: Summary Hospital Course Reason for hospitalization: ST-elevation ID Hospital Course: patient was admitted to the emergency department with complaints of retrosternal burning chest pain for which she later presented to the emergency department due to persistence of her symptoms. She was found to have acute inferolateral myocardial infarction for which she was emergently taken to the cardiac catheterization lab. She was found to have 100% occlusion of the circumflex after the 2nd obtuse marginal branch and a large dominant vessel which intervention or unsuccessful despite multiple attempts. There is no angiographic disease in the LAD and extended to in [place] the apex and into the inferior wall. Right coronary artery was without angiographic disease and was a small caliber nondominant vessel. Echocardiogram revealed EF 40 45% with akinesis of the inferolateral wall. post cardiac catheterization she had residual chest discomfort she felt was similar to her acid reflux and completely different than presenting symptoms and no near severe. Peak troponin was rhythm 19 with downward trend prior to discharge. She was not decompensated heart failure to this hospitalization. She had brief nonsustained VT within the 1st 24 hours post ID but not no subsequent recurrence. She was placed on appropriate medical management and symptoms were completely resolved prior to discharge. She had no access complications from the right groin. Patient was then discharged home in stable and improved condition to follow up as an outpatient with [facility] per her wishes which is near her other physicians and close to her home. Status at Discharge Cognitive/behavioral status at discharge: Competent Functional status at discharge: independent ambulation Overall status at discharge: patient is progressing back to baseline Time Spent with Patient Time attestation: Total time spent providing and/or coordinating discharge services: 39 minutes Time spent: Greater than 30 minutes Exam Const: General: comfortable, no acute distress, in distress and uncomfortable Other: well-developed well-nourished white female pleasant cooperative no distress this morning HENMT: Mouth: Yes moist mucous membra
== END 2022-05-21 12:55 | disposition home or self-care (01) | DRG 282 ==
LOC: ANHED 18:25 → ANHCATHLAB 18:52 → ANHICU 19:46 → ANHIMU 05-19 14:50
PROVIDERS: Emergency Medicine; Internal Medicine; Admitting Provider Specialist; Emergency Provider Emergency Medicine; PCP Family Medicine; Visit Provider Internal Medicine Cardiovascular Disease
PROC: 4A023N7 Measurement of Cardiac Sampling and Pressure, Left Heart, Percutaneous Approach (ICD-10-PCS; CPT 93454; principal; 2022-05-18 18:15)
PROC: 02703ZZ Dilation of Coronary Artery, One Artery, Percutaneous Approach (ICD-10-PCS; CPT 92920; 2022-05-18 18:15)
PROC: 4A023N7 Measurement of Cardiac Sampling and Pressure, Left Heart, Percutaneous Approach (ICD-10-PCS; CPT 92973; 2022-05-18 18:15)
DX: I21.19 ST elevation (STEMI) myocardial infarction involving other coronary artery of inferior wall (principal); E78.5 Hyperlipidemia, unspecified; I25.5 Ischemic cardiomyopathy; I25.10 Atherosclerotic heart disease of native coronary artery without angina pectoris; R73.9 Hyperglycemia, unspecified; F32.A Depression, unspecified; K21.9 Gastro-esophageal reflux disease without esophagitis; Z87.891 Personal history of nicotine dependence
CPT/HCPCS: 36415; 71045; 80048; 80053; 80061; 82948; 83036; 83690; 83735; 84100; 84484; 85025; 85027; 85610; 85730; 92920; 92973; 93005; 93454; 99285; A9270; C1725; C1757; C1769; C1887; C1894; C8929; J0461; J0583; J1644; J1650; J2270; J2405; J3010; J7030; Q9957

== ENCOUNTER 2022-09-28 13:30 | Outpatient (RCR) | payer BC, OTHER, SELFPAY | END 2022-09-28 15:47 | disposition home or self-care (01) | LOC: ANHCPREHAB 13:30 | PROVIDERS: PCP Family Medicine; Visit Provider Nurse Practitioner Adult Health | DX: I25.2 Old myocardial infarction (principal) | CPT/HCPCS: 93798 ==

== ENCOUNTER 2025-05-20 13:24 | Outpatient (CLI) | payer OTHER, SELFPAY ==
--- NOTE | ~2025-05-20 | MM_ITS ---
EXAMINATION: MM screening jatin BI w santino HISTORY: Screening TECHNIQUE: Craniocaudal and mediolateral oblique 3-D tomosynthesis images were obtained and synthetic 2-D images were generated. CAD analysis was submitted and interpreted. COMPARISON: Comparison to multiple prior studies sequentially, with oldest reviewed study dated , 08/22/2006 BREAST PARENCHYMAL COMPOSITION: There are scattered areas of fibroglandular density. FINDINGS: There is no evidence of suspicious mass, calcification, or architectural distortion to suggest malignancy in either breast. IMPRESSION: 1. No mammographic evidence of malignancy. 2. Recommend routine screening mammography in one year. BI-RADS Category 1: Negative Reviewed, dictated and finalized at location B. SSER OPERATOR
--- NOTE | ~2025-05-20 | DEXA_ITS ---
Bone Density Report Name: MARGUERITE LUCIANO Age: 70 Sex: Female Ethnicity: White Date of : 1955 Indication: postmenopausal; screening for osteoporosis; Referring Provider: OWEN, PRATEEK Guerrero Study: Bone densitometry was performed. Exam Date: May 20, 2025 Accession number: [id number] Bone Density: Region BMD T-score Z-score Classification AP Spine(L1-L4) 1.019 -0.3 1.7 Normal Femoral Neck (Left) 0.762 -0.8 0.9 Normal Total Hip (Left) 0.931 -0.1 1.3 Normal Femoral Neck (Right) 0.768 -0.7 1.0 Normal Total Hip (Right) 0.938 0.0 1.4 Normal Total Hip Mean 0.934 -0.1 1.4 Normal World Health Organization criteria for BMD impression classify patients as: Normal (T-score at or above -1.0), Osteopenia (T-score between -1.0 and -2.5), or Osteoporosis (T-score at or below -2.5). 10-year Fracture Risk: FRAX not reported because: All T-scores for Spine Total, Hip Total, Femoral Neck at or above -1.0 Previous Exams: -- Region Exam Age BMD T-score BMD Change BMD Change Date g/cm2 vs Baseline vs Previous -- AP Spine (L1-L4) 05/20/2025 70 1.019 -0.3 -4.2%* 2.2% 01/14/2015 59 0.997 -0.5 -6.3%* -4.1%* 08/26/2011 56 1.040 -0.1 -2.2%* -2.2%* 01/31/2008 52 1.064 0.2 Total Hip(Left) 05/20/2025 70 0.931 -0.1 -3.2%* -4.7%* 01/14/2015 59 0.977 0.3 1.6% -1.8% 08/26/2011 56 0.995 0.4 3.5%* 3.5%* 01/31/2008 52 0.962 0.2 Total Hip(Right) 05/20/2025 70 0.938 0.0 -5.2%* -7.8%* 01/14/2015 59 1.018 0.6 2.9%* 2.3% 08/26/2011 56 0.994 0.4 0.6% 0.6% 01/31/2008 52 0.989 0.4 -- *Denotes significance at 95% confidence level, LSC for AP Spine = 0.022 g/cm2, LSC for Total Hip = 0.027 g/cm2 Clinical Information Provided by Patient: Has used the following medications: Vitamin D Patient maximum height was 66 Menopause Age: 52 No regular weight bearing exercise Drinks caffeinated beverages Onset of menses at age 17 Number of children 4 Impression: The patient has normal bone mass. The BMD for the Total Hip(Left) decreased, changing by -4.7% since the last DXA exam. The BMD for the Total Hip(Right) decreased, changing by -7.8% since the last DXA exam. Discussion: BONE DENSITY IS ABOVE THE MINIMUM DESIRABLE LEVEL AT ALL SKELETAL SITES TESTED. This patient?s bone mineral density is above the minimum desirable level (T-score -1.0 or better) at all sites measured. The patient should follow a healthful lifestyle (good nutrition with adequate calcium and vitamin D, and appropriate weight-bearing exercise). Follow-Up: Consider repeating this study in 3 to 4 years to reassess this patient's status, or sooner if there is some new clinical indication. Reported by: ILDA on 05/20/2025 1:54:00 PM. Reviewed, dictated and finalized at location A.
== END 2025-05-20 13:25 | disposition home or self-care (01) ==
LOC: MICIMG 13:26
PROVIDERS: PCP Family Medicine; Visit Provider Nurse Practitioner
DX: Z12.31 Encounter for screening mammogram for malignant neoplasm of breast (principal); Z78.0 Asymptomatic menopausal state
CPT/HCPCS: 77063; 77067; 77080

== ENCOUNTER 2025-05-29 09:33 | Outpatient (CLI) | payer OTHER, SELFPAY ==
--- NOTE | ~2025-05-29 | US_ITS ---
EXAM/PROCEDURE: US aorta [facility] HISTORY: Screening for Cardiovascular disorders COMPARISON: None available. TECHNIQUE: Aorta ultrasound screening FINDINGS: Proximal mid and distal abdominal aorta maximum dimensions are 2.4, 1.8 and 1.6 cm suspected. Both common iliac arteries measure 9 mm in the greatest dimension. IMPRESSION: No evidence of AAA. Reviewed, dictated and finalized at location A. ET PRESS OPERATOR IMPRESSION: No evidence of AAA.
== END 2025-05-29 09:34 | disposition home or self-care (01) ==
PROVIDERS: PCP Internal Medicine Cardiovascular Disease; Visit Provider Family Medicine
DX: Z13.6 Encounter for screening for cardiovascular disorders (principal)
CPT/HCPCS: 76706